=== PATIENT | male | born 1990 | race African-American/Black ===

== ENCOUNTER 2023-06-13 21:05 | Emergency (ER) | payer SELFPAY | END 2023-06-13 22:44 | disposition left against medical advice (07) | LOC: CSHERS 21:05 | DX: Z53.21 Procedure and treatment not carried out due to patient leaving prior to being seen by health care provider (principal) ==

== ENCOUNTER 2023-06-13 23:37 | Emergency (ER) | payer SELFPAY ==
[2023-06-14] MEDS ORDERED: Ibuprofen 200 MG TAB ONE (01:37)
[2023-06-14] MEDS ORDERED: Penicillin V Potassium 250 MG TAB PO SCH (01:45)
[2023-06-14] MEDS ORDERED: BENZOCAINE/MENTHOL/ZINC CHLOR 5.1 GM TUBE TOP SCH (02:00)
== END 2023-06-14 02:07 | disposition home or self-care (01) ==
LOC: CSHERS 23:37
DX: K02.9 Dental caries, unspecified (principal); K04.01 Reversible pulpitis; Z87.891 Personal history of nicotine dependence
CPT/HCPCS: 99282